=== PATIENT | male | born 1975 | race African-American/Black ===

== ENCOUNTER 2022-04-21 15:33 | Outpatient (REF) | payer BC, SELFPAY ==
--- NOTE | ~2022-04-21 | XR_ITS ---
EXAMINATION: XR LUMBOSACRAL SPINE WITH OBLIQUES CLINICAL INFORMATION: Spondylosis without myelopathy or radiculopathy. COMPARISON: October 04, [address] scan of February 17, 2016 TECHNIQUE: AP, both oblique, and lateral views of the lumbar spine. Lateral view of the lumbosacral junction. FINDINGS: The vertebral bodies and posterior elements are normal. The disc spaces are preserved and the vertebral alignment is normal. The paraspinal soft tissues are normal. XR/XR lumbar spine 6V w bending IMPRESSION: No significant bony abnormality of the lumbosacral spine.
--- NOTE | ~2022-04-21 | XR_ITS ---
EXAMINATION: XR BILATERAL HIPS WITH AP PELVIS CLINICAL INFORMATION: Sacrococcygeal disorder. COMPARISON: CT abdomen and pelvis of 02/17/2016. TECHNIQUE: AP view of the pelvis and 2 views of each hip. FINDINGS: AP view of the pelvis does not demonstrate any evidence of acute fracture or diastases. Hip joint spaces appear maintained. Sacroiliac joints appear unremarkable. 2 views of the right hip do not demonstrate any evidence of acute fracture or dislocation. Hip joint spaces maintained. No significant spurring is present. No lytic or sclerotic lesions are appreciated. No evidence of femoral head collapse. 2 views of the left hip do not demonstrate any evidence of acute fracture or dislocation. No significant spurring is seen. Hip joint space is maintained. No abnormal lesions appreciated. XR/XR hip BI w PEL1V IMPRESSION: No significant abnormality of the pelvis or bilateral hips.
== END 2022-04-21 15:34 | disposition home or self-care (01) ==
LOC: HO.XRAY 15:33
PROVIDERS: PCP Internal Medicine; Visit Provider Nurse Practitioner Family
DX: M47.816 Spondylosis without myelopathy or radiculopathy, lumbar region (principal); M53.3 Sacrococcygeal disorders, not elsewhere classified
CPT/HCPCS: 72114; 73521

== ENCOUNTER → 2022-05-08 15:45 | Outpatient (BNVA) | payer BC, SELFPAY | PROVIDERS: PCP Internal Medicine; Visit Provider Nurse Practitioner Family | DX: M53.3 Sacrococcygeal disorders, not elsewhere classified (principal) ==

== ENCOUNTER 2022-05-26 06:14 | Outpatient (REF) | payer BC, SELFPAY ==
--- NOTE | ~2022-05-26 | FL_ITS ---
EXAMINATION: XR FLUOROSCOPY WITH IMAGES CLINICAL INFORMATION: Spondylosis without myelopathy or radiculopathy. Low back pain COMPARISON: None. TECHNIQUE: Fluoroscopy Supervised By: Sita. Fluoroscopy Time: 0.7. Cumulative Dose: 7.54 mGy. DAP: 2.05 Gycm2. Images: 6. FINDINGS: There are needles positioned adjacent to the bilateral S1, L5 L4 and L3 pedicles with contrast opacification of soft tissues. Visualized vertebral heights and alignment is normal. The disc heights is normal. FL/FL guidance in treatment room IMPRESSION: Fluoroscopy guidance was provided to the referrer for pain management.
== END 2022-05-26 06:15 | disposition home or self-care (01) ==
LOC: CF 06:14
PROVIDERS: Visit Provider Anesthesiology
DX: M47.816 Spondylosis without myelopathy or radiculopathy, lumbar region (principal); M53.3 Sacrococcygeal disorders, not elsewhere classified; M51.36 Other intervertebral disc degeneration, lumbar region; G89.29 Other chronic pain
CPT/HCPCS: 64493; 64494

== ENCOUNTER → 2022-05-28 14:30 | Outpatient (BNVA) | payer BC, SELFPAY | PROVIDERS: PCP Internal Medicine; Visit Provider Nurse Practitioner Family | DX: M53.3 Sacrococcygeal disorders, not elsewhere classified (principal) ==

== ENCOUNTER → 2022-07-13 15:33 | Outpatient (BNVA) | payer BC, SELFPAY | PROVIDERS: PCP Internal Medicine; Visit Provider Nurse Practitioner Family | DX: Z13.89 Encounter for screening for other disorder (principal) ==

== ENCOUNTER 2022-08-14 14:57 | Outpatient (REF) | payer BC, SELFPAY ==
--- NOTE | ~2022-08-14 | MR_ITS ---
EXAMINATION: MR LUMBAR SPINE WITHOUT CONTRAST CLINICAL INFORMATION: Lower back pain COMPARISON: CT abdomen and pelvis 02/17/2016 TECHNIQUE: MRI of the lumbar spine was obtained using routine sequences without contrast. FINDINGS: Lumbar straightening. No significant spondylolisthesis. No suspicious marrow signal or focal osseous lesion. Mild edema involving the anterior superior and inferior endplates of L2-L5. Hypointense signal in the right aspect of the S1 vertebral body corresponds to a region of dense sclerosis on prior abdominal and pelvic CT and likely represents a bone island. The vertebral body heights are maintained. Mild disc desiccation at L5-S1. The conus medullaris terminates at the level of L2-L3. The distal spinal cord is normal in appearance. The cauda equina nerve roots appear normal. No significant abnormalities of the paraspinal musculature. Limited evaluation of the intra-abdominal structures without significant abnormalities. Right renal cyst. The abdominal aorta is of normal contour and caliber. SPINAL LEVELS: L1-L2: No significant spinal canal or neuroforaminal narrowing. L2-L3: No significant spinal canal or neuroforaminal narrowing. L3-L4: No significant spinal canal or neuroforaminal narrowing. L4-L5: No significant spinal canal or neuroforaminal narrowing. L5-S1: No significant spinal canal or neuroforaminal narrowing. MR/MR lumbar spine wo con IMPRESSION: 1. Borderline low positioning of the cauda equina which terminates at L2-L3. No other imaging findings of cord tethering. 2. Minimal degenerative changes of the lumbar spine. No significant spinal canal or neural foraminal narrowing
== END 2022-08-14 14:58 | disposition home or self-care (01) ==
LOC: HO.MRI 14:57
PROVIDERS: PCP Internal Medicine; Visit Provider Nurse Practitioner Family
DX: G89.29 Other chronic pain (principal); M47.816 Spondylosis without myelopathy or radiculopathy, lumbar region; M51.36 Other intervertebral disc degeneration, lumbar region; M53.3 Sacrococcygeal disorders, not elsewhere classified; M54.50 Low back pain, unspecified
CPT/HCPCS: 72148

== ENCOUNTER → 2022-08-21 15:41 | Outpatient (BNVA) | payer BC, SELFPAY | PROVIDERS: PCP Internal Medicine; Visit Provider Nurse Practitioner Family | DX: Z13.89 Encounter for screening for other disorder (principal) ==